=== PATIENT | male | born 1980 | race Caucasian/White ===

== ENCOUNTER 2017-07-17 13:38 | Emergency (ER) | payer OTHER ==
--- NOTE | 2017-07-17 14:55 | ED Physician Documentation ---
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 He was about 1 minute and 40 seconds into the push-ups after doing about 45 push-ups he felt a sudden pop in his right shoulder and has had pain since then. He is unable to move his shoulder in a full range of motion has pain with flexion of the arm and use of the biceps and he has pain over the scapula as well. Review of Systems Constitutional: denies: Fever, Chills Eyes: denies: Decreased vision Ears: denies: Ear pain Nose: denies: Congestion Throat: denies: Sore throat Cardiac: denies: Chest pain / pressure, Palpitations Respiratory: denies: Dyspnea, Cough GI: denies: Nausea, Vomiting : denies: Dysuria, Frequency Skin: denies: Rash Musculoskeletal: reports: Joint pain. denies: Neck pain, Back pain Neurologic: denies: Generalized weakness, Focal weakness, Numbness PD PAST MEDICAL HISTORY - Present Medications Home Medications: Ambulatory Orders Medication Instructions Recorded Confirmed No Known Home Medications [No 07/17/17 07/17/17 Known Home Medications] - Allergies Allergies/Adverse Reactions: Allergies Allergy/AdvReac Type Severity Reaction Status Date / Time No Known Drug Allergies Allergy Verified 07/17/17 13:46 - Social History Does the pt smoke?: No Smoking Status: Never smoker PD ED PE NORMAL - Vitals Vital signs reviewed: Yes (normal) - General General: Alert and oriented X 3, No acute distress, Well developed/nourished - HEENT HEENT: Atraumatic, PERRL, EOMI - Neck Neck: Supple, no meningeal sign, No bony TTP - Respiratory Respiratory: No respiratory distress - Derm Derm: Normal color, Warm and dry, No rash - Extremities Extremities: No deformity, No edema, Other (There is pain at the insertion of the biceps tendon proximally and there is pain over the supraspinatous. He is able to hold the arm in abduction but not raise the arm over the head. ) - Neuro Neuro: No motor deficit, No sensory deficit Eye Opening: Spontaneous Motor: Obeys Commands Verbal: Oriented GCS Score: 15 - Psych Psych: Normal mood, Normal affect Results - Vitals Vitals: Vital Signs - 24 hr 07/17/17 13:42 Temperature 36.6 C Heart Rate 88 Respiratory 16 Rate Blood Pressure 130/76 O2 Saturation 97 Oxygen O2 Source Room air - Rads (name of study) shoulder right Radiology: Prelim report reviewed (Impression: Normal shoulder radiography.), EMP read indepedently, See rad report PD MEDICAL DECISION MAKING - ED course Complexity details: reviewed results, re-evaluated patient, considered differential, d/w patient ED course: 37-year-old male acute shoulder injury related to excessive rapid push-ups has tenderness over the insertion of the biceps tendon is placed into a sling and x- ray of the shoulder is without any evidence of abnormality. I am concerned about the possibility of biceps tendon rupture and shoulder impingement syndrome. I have asked the patient to follow-up with orthopedics. Departure - Departure Disposition: 01 Home, Self Care Clinical Impression: Sprain of shoulder, right Qualifiers: Encounter type: initial encounter Shoulder sprain type: unspecified sprain Qualified Code(s): S43.401A - Unspecified sprain of right shoulder joint, initial encounter Condition: Stable Instructions: ED Sprain Shoulder Follow-Up: [facility] [place] [Provider Group] [facility] [Provider Group]
--- NOTE | 2017-07-17 15:24 | XRAY Report ---
EXAM: RIGHT SHOULDER RADIOGRAPHY EXAM DATE: 07/17/2017 03:07 PM. CLINICAL HISTORY: Pain and pop with excessive force/biceps tendon. COMPARISON: None. TECHNIQUE: 3 views. FINDINGS: Bones: Normal. No fracture or bone lesion. Joints: No evidence of dislocation. Joint spacing is maintained. Soft tissues: The visualized hemithorax is unremarkable. No obvious soft tissue swelling. IMPRESSION: Negative shoulder radiography. [facility] Referring Provider Line: [phone] SITE ID: [id number]
[2017-07-17 16:05] VITALS: BP 130/62
== END 2017-07-17 16:03 | disposition home or self-care (01) ==
LOC: ED 13:38
DX: S43.401A Unspecified sprain of right shoulder joint, initial encounter (principal); X50.9XXA Other and unspecified overexertion or strenuous movements or postures, initial encounter; Y93.B2 Activity, push-ups, pull-ups, sit-ups; Y99.1 Military activity
CPT/HCPCS: 99283